=== PATIENT | male | born 1955 | race Caucasian/White ===

== ENCOUNTER → 2017-09-15 | Day surgery (SDC) | payer BC ==
[~2017-09-15] VITALS: Ht 175.3 cm; Wt 104.3 kg
[~2017-09-15] MED LIST: ACEPHEN325 MG PO; HYDROCODONE/ACE1 TAB PO; OMNICEF300 MG OR; VITAMINS; ZITHROMAX500 MG PO
[2017-09-15 11:08] VITALS: BP 157/82
== END | disposition home or self-care (01) | DRG 489 ==
LOC: ORM 06:22
PROC: 0SBD4ZZ Excision of Left Knee Joint, Percutaneous Endoscopic Approach (ICD-10-PCS; principal; 2017-09-15)
PROC: 0SBD4ZZ Excision of Left Knee Joint, Percutaneous Endoscopic Approach (ICD-10-PCS; 2017-09-15)
DX: S83.212A Bucket-handle tear of medial meniscus, current injury, left knee, initial encounter (principal); M17.12 Unilateral primary osteoarthritis, left knee; S83.232A Complex tear of medial meniscus, current injury, left knee, initial encounter; S83.272A Complex tear of lateral meniscus, current injury, left knee, initial encounter; M65.862 Other synovitis and tenosynovitis, left lower leg; M94.262 Chondromalacia, left knee; X58.XXXA Exposure to other specified factors, initial encounter; Z87.891 Personal history of nicotine dependence

== ENCOUNTER 2019-01-03 08:45 | Day surgery (SDC) | payer BC ==
[~2019-01-03] VITALS: Ht 175.3 cm; Wt 99.8 kg
[~2019-01-03 08:45] MED LIST changes: +HYZAAR1 TA2 PO; +MULTIVITAMI1 PO
[2019-01-03 11:19] VITALS: BP 126/60
== END 2019-01-03 11:30 | disposition home or self-care (01) | DRG 951 ==
LOC: ENDO 08:45
PROVIDERS: ATTEND Surgery
PROC: 0DJD8ZZ Inspection of Lower Intestinal Tract, Via Natural or Artificial Opening Endoscopic (ICD-10-PCS; principal; 2019-01-03)
DX: Z12.11 Encounter for screening for malignant neoplasm of colon (principal); K64.8 Other hemorrhoids; I10 Essential (primary) hypertension; K43.2 Incisional hernia without obstruction or gangrene